=== PATIENT | male | born 1950 | race Caucasian/White ===

== ENCOUNTER 2016-11-01 21:34 | Emergency (ER) | payer MEDICARE, OTHER ==
[~2016-11-01] VITALS: Ht 180.3 cm; Wt 102.6 kg
[2016-11-01 21:41] VITALS: BP 131/80; PULSE 87; RESP 20; TEMP 100.1; O2SAT 95
[2016-11-01] MEDS ORDERED: SIMV20TA PO (21:51)
[2016-11-01] MEDS ORDERED: LISI10TA3 PO (21:51)
--- NOTE | 2016-11-01 22:10 | PD ---
HPI Chief Complaint: Cold / Flu Symptoms Time Seen by Provider: 22:04 Travel History International Travel<30 days: No Contact w/Intl Traveler<30days: No Traveled to known affect area: No History of Present Illness HPI Patient is a 66-year-old male with history of apprehension and chronic bronchitis not on inhalers presenting with chief complaint of cough. Present for 6 days. It is worse over the last 3 days. He has had a subjective fever most days. He has sputum production but states he swallows it but does not spit it out. He has had wheezing and dyspnea as well. Dyspnea is worse with activity and lying flat. He denies chest pain. He states he had some sore throat and nasal congestion earlier in the week which has resolved. He did not receive influenza vaccine, has had pneumococcal vaccines. He denies a history of CAD and CHF. He denies any pain or swelling in his legs. PFSH Past Medical History High Cholesterol: Yes Hypertension: Yes Tetanus Vaccination: < 5 Years Influenza Vaccination: Yes Social History Alcohol Use: Yes (2-3 beers daily ) Tobacco Use: No Substance Use: No Allergies-Medications (Allergen,Severity, Reaction): Coded Allergies: No Known Allergies (Unverified , 11/01/16) Reported Meds & Prescriptions Reported Meds & Active Scripts Active Guaifenesin-Codeine Liq 100-10 Mg/5 Ml Soln 5-10 Ml PO Q6H PRN Medrol Dosepak (Methylprednisolone) 4 Mg Dspk 4 Mg PO DIRECTED Per Pharmacist direction Proair Hfa 8.5 GM Inh (Albuterol Sulfate) 90 Mcg/Act Aer 2 Puff INH Q4-6H PRN 108 mcg/actuation Zithromax Z-Martin (Azithromycin) 250 Mg Dspk 250 Mg PO DIRECTED 500 MG (2 tabs) day 1, then 1 tab days 2-5. Reported Simvastatin 20 Mg Tab 20 Mg PO DAILY Lisinopril 10 Mg Tab 10 Mg PO DAILY Review of Systems Except as stated in HPI: all other systems reviewed are Neg Physical Exam Narrative GENERAL: Well-developed and well-nourished adult male in no acute distress. SKIN: Warm and dry. Good turgor without tenting. HEAD: Normocephalic and atraumatic. EYES: PERRL bilaterally, 5mm. EOMI bilaterally. No injection or icterus present. No proptosis. Lids without edema or erythema. ENT: Bilateral ear canals are non-edematous/non-erythematous without otorrhea. Bilateral TMs have intact landmarks and without distortion, perforation, air- fluid level or erythema. Nasal mucosa pink and moist without discharge, septum intact and midline. Buccal mucosa pink and moist. Oropharynx free of erythema, tonsillar hypertrophy, masses, swelling, asymmetry and exudates. Uvula midline and airway patent. NECK: Supple, no meningeal signs. Trachea midline, no JVD. No cervical or facial lymphadenopathy. CARDIOVASCULAR: Regular rate and rhythm without murmurs, rubs, clicks or gallops. Radial and posterior tibial pulses 2+ bilaterally. No pedal edema. Negative bilateral Homans sign. RESPIRATORY: Diffuse end-inspiratory and expiratory wheezing without rales or rhonchi. No distress or use of accessory muscles. No stridor, tripoding or drooling. GASTROINTESTINAL: Non-tender, non-distended. Normal bowel sounds all 4 quadrants. No masses or organomegaly present. MUSCULOSKELETAL: No gait disturbances. Patient freely moving all four extremities spontaneously. Extremities without clubbing, cyanosis, or edema. No obvious deformities. NEUROLOGIC: CN II-XII grossly intact. Awake and alert. Motor grossly within normal limits. Normal speech. PSYCHIATRIC: Appropriate mood and affect; insight and judgment normal. Data Data Last Documented VS Vital Signs Date Time Temp Pulse Resp B/P Pulse Ox O2 Delivery O2 Flow Rate FiO2 11/02/16 00:37 98.4 87 24 126/64 95 Room Air Orders Complete Blood Count With Diff (11/01/16 22:) Comprehensive Metabolic Panel (11/01/16 22:01) B-Type Natriuretic Peptide (11/01/16 22:01) Troponin I (11/01/16 22:01) Influenzae A/B Antigen (11/01/16 22:01) Iv Access Insert/Monitor (11/01/16 22:) Electrocardiogram (11/01/16 22:) Ecg Monitoring (11/01/16 22:) Oximetry (11/01/16 22:01) Chest, Pa & Lat (11/01/16 22:01) Methylprednisolone So Succ Inj (Solumedr (11/01/16 22:15) Albuterol-Ipratropium Neb (Duoneb Neb) (11/01/16 22:15) Potassium Chloride (Kcl) (11/01/16 23:00) Albuterol-Ipratropium Neb (Duoneb Neb) (11/01/16 23:00) Ceftriaxone Inj (Rocephin Inj) (11/01/16 23:15) Blood Culture (11/01/16 23:11) Labs Laboratory Tests Test 11/01/16 22:20 White Blood Count 5.1 TH/MM3 Red Blood Count 4.19 MIL/MM3 Hemoglobin 13.4 GM/DL Hematocrit 38.3 % Mean Corpuscular Volume 91.3 FL Mean Corpuscular Hemoglobin 32.1 PG Mean Corpuscular Hemoglobin 35.2 % Concent Red Cell Distribution Width 12.1 % Platelet Count 134 TH/MM3 Mean Platelet Volume 8.4 FL Neutrophils (%) (Auto) 61.9 % Lymphocytes (%) (Auto) 27.6 % Monocytes (%) (Auto) 7.6 % Eosinophils (%) (Auto) 2.1 % Basophils (%) (Auto) 0.8 % Neutrophils # (Auto) 3.2 TH/MM3 Lymphocytes # (Auto) 1.4 TH/MM3 Monocytes # (Auto) 0.4 TH/MM3 Eosinophils # (Auto) 0.1 TH/MM3 Basophils # (Auto) 0.0 TH/MM3 CBC Comment DIFF FINAL Differential Comment Sodium Level 140 MEQ/L Potassium Level 3.2 MEQ/L Chloride Level 103 MEQ/L Carbon Dioxide Level 27.3 MEQ/L Anion Gap 10 MEQ/L Blood Urea Nitrogen 19 MG/DL Creatinine 0.93 MG/DL Estimat Glomerular Filtration 81 ML/MIN Rate Random Glucose 148 MG/DL Calcium Level 7.8 MG/DL Total Bilirubin 0.5 MG/DL Aspartate Amino Transf 31 U/L (AST/SGOT) Alanine Aminotransferase 37 U/L (ALT/SGPT) Alkaline Phosphatase 41 U/L Troponin I LESS THAN 0.02 NG/ML B-Type Natriuretic Peptide 13 PG/ML Total Protein 6.9 GM/DL Albumin 3.5 GM/DL MDM Medical Decision Making Medical Screen Exam Complete: Yes Emergency Medical Condition: Yes Differential Diagnosis Pneumonia versus bronchitis versus viral syndrome versus CHF versus ACS Narrative Course Patient is a 66-year-old male with history of chronic bronchitis, hypertension and hyperlipidemia presenting with worsening cough and dyspnea and subjective fever. He's had symptoms for 6 days in the ear nose and throat symptoms have resolved however his respiratory symptoms are worsening. He denies any chest pain but has dyspnea with exertion and lying flat. He has diffuse wheezing. He states he has chronic bronchitis and stop smoking 20 years prior, is not on any inhalers. Patient was given site Medrol and DuoNeb and ordered EKG, chest x -ray, influenza, metabolic, CBC, BMP and troponin. Potassium 3.2, replaced with 30 mEq orally. Patient not receive complete resolution of his symptoms with 2 nebs initially, was given 2 additional. EKG shows arrhythmias or signs of ischemia. Chest x-ray pending. Patient was signed out to Dr. Holder for final care and disposition. Diagnosis Primary Impression: Bronchitis Scripts Guaifenesin-Codeine Liq 100-10 Mg/5 Ml Soln5-10 Ml PO Q6H PRN (COUGH) #1 BOTTLE Ref 0 Prov:Candida Holder MD 11/02/16 Methylprednisolone Dosepak (Medrol Dosepak)4 Mg Dspk4 Mg PO DIRECTED #1 DSPK Ref 0 Per Pharmacist direction Prov:Candida Holder MD 11/02/16 Albuterol 8.5 GM Inh (Proair Hfa 8.5 GM Inh)90 Mcg/Act Aer2 Puff INH Q4-6H PRN ( SHORTNESS OF BREATH) #1 INHALER Ref 0 108 mcg/actuation Prov:Candida Holder MD 11/02/16 Azithromycin (Zithromax Z-Martin)250 Mg [id number] Mg PO DIRECTED #1 DSPK Ref 0 500 MG (2 tabs) day 1, then 1 tab days 2-5. Prov:Candida Holder MD 11/02/16 Condition: Stable Marcus Craig III Nov 01, 2016 22:10
[2016-11-01] MEDS: RESP: ALBUTEROL 2.5 MG/IPRATROPIUM 0.5 MG NEB (SCH) INH ×4 (22:12→23:23)
[2016-11-01] MEDS ORDERED: methylPREDNISolone SOD SUCC 125 MG/2 ML VIAL IVP ONE (22:15)
[2016-11-01 22:20] VITALS: O2SAT 95
[2016-11-01 22:33] LABS: AUTOMATED NEUTROPHIL # 3.2 TH/MM3 (1.8-7.7); BASOPHIL % 0.8 % (0.0-2.0); EOSINOPHIL # 0.1 TH/MM3 (0-0.4); EOSINOPHIL % 2.1 % (0.0-4.0); HEMATOCRIT 38.3 % (39.0-51.0); HEMO FLAGS DIFF FINAL; LYMPH % 27.6 % (9.0-44.0); LYMPHOCYTE # 1.4 TH/MM3 (1.0-4.8); MEAN CELL VOLUME 91.3 FL (80.0-100.0); MEAN CORPUSCULAR HEMOGLOBIN 32.1 PG (27.0-34.0); MEAN CORPUSCULAR HGB CONC 35.2 % (32.0-36.0); MONO % 7.6 % (0.0-8.0); NEUT % 61.9 % (16.0-70.0); PLATELET COUNT 134 TH/MM3 (150-450); RED BLOOD COUNT 4.19 MIL/MM3 (4.50-5.90); RED CELL DISTRIBUTION WIDTH 12.1 % (11.6-17.2); WHITE BLOOD COUNT 5.1 TH/MM3 (4.0-11.0)
[2016-11-01 22:42] LABS: CHLORIDE 103 MEQ/L (98-107); POTASSIUM 3.2 MEQ/L (3.5-5.1); SODIUM (NA) 140 MEQ/L (136-145)
[2016-11-01 22:46] LABS: ANION GAP 10 MEQ/L (5-15); BICARBONATE 27.3 MEQ/L (21.0-32.0); BLOOD UREA NITROGEN 19 MG/DL (7-18)
[2016-11-01 22:49] LABS: ALT (GPT) 37 U/L (12-78); AST (GOT) 31 U/L (15-37); GLOMERULAR FILTRATION RATE 81 ML/MIN (>89)
[2016-11-01 22:50] LABS: TOTAL BILIRUBIN ADULT 0.5 MG/DL (0.2-1.0)
[2016-11-01 22:52] LABS: ALKALINE PHOSPHATASE 41 U/L (45-117)
[2016-11-01] MEDS ORDERED: POTASSIUM CHLORIDE 10 MEQ CONTROLLED RELEASE TAB PO ONE (23:00)
[2016-11-01] MEDS ORDERED: cefTRIAXone INJ 1,000 MG in SODIUM CHLORIDE 0.9% INJ 100 ML IV ONE (23:15)
--- NOTE | 2016-11-01 23:20 | RADHPO ---
EXAM DATE/TIME: 11/01/2016 22:12 [facility] COMPARISON: No previous studies available for comparison. INDICATIONS : Cough. MEDICAL HISTORY : None. SURGICAL HISTORY : None. ENCOUNTER: Initial ACUITY: 1 day PAIN SCORE: 0/10 LOCATION: Bilateral chest FINDINGS: Trace atelectasis seen in the bases. No focal lobar consolidation seen. No pleural effusion or pneumo thorax. Heart size within normal limits. Thoracic aorta is tortuous. CONCLUSION: Mild bibasilar atelectasis. Marcus Crowe MD on November 01, 2016 at 23:18 Board Certified Radiologist. This report was verified electronically.
--- NOTE | 2016-11-01 23:31 | PD ---
Physical Exam Date Seen by Provider: Nov 01, 2016 Time Seen by Provider: 23:29 Narrative accepted in transfer of care from [facility] GENERAL: SKIN: Warm and dry. HEAD: Normocephalic. EYES: No scleral icterus. No injection or drainage. NECK: Supple, trachea midline. No JVD or lymphadenopathy. CARDIOVASCULAR: Regular rate and rhythm without murmurs, gallops, or rubs. RESPIRATORY: Breath sounds equal bilaterally. No accessory muscle use. GASTROINTESTINAL: Abdomen soft, non-tender, nondistended. MUSCULOSKELETAL: No cyanosis, or edema. BACK: Nontender without obvious deformity. No CVA tenderness. Data Data Last Documented VS Vital Signs Date Time Temp Pulse Resp B/P Pulse Ox O2 Delivery O2 Flow Rate FiO2 11/02/16 00:37 98.4 87 24 126/64 95 Room Air Orders Complete Blood Count With Diff (11/01/16 22:01) Comprehensive Metabolic Panel (11/01/16 22:01) B-Type Natriuretic Peptide (11/01/16 22:01) Troponin I (11/01/16 22:01) Influenzae A/B Antigen (11/01/16 22:01) Iv Access Insert/Monitor (11/01/16 22:01) Electrocardiogram (11/01/16 22:01) Ecg Monitoring (11/01/16 22:01) Oximetry (11/01/16 22:01) Chest, Pa & Lat (11/01/16 22:01) Methylprednisolone So Succ Inj (Solumedr (11/01/16 22:15) Albuterol-Ipratropium Neb (Duoneb Neb) (11/01/16 22:15) Potassium Chloride (Kcl) (11/01/16 23:00) Albuterol-Ipratropium Neb (Duoneb Neb) (11/01/16 23:00) Ceftriaxone Inj (Rocephin Inj) (11/01/16 23:15) Blood Culture (11/01/16 23:11) Labs Laboratory Tests Test 11/01/16 22:20 White Blood Count 5.1 TH/MM3 Red Blood Count 4.19 MIL/MM3 Hemoglobin 13.4 GM/DL Hematocrit 38.3 % Mean Corpuscular Volume 91.3 FL Mean Corpuscular Hemoglobin 32.1 PG Mean Corpuscular Hemoglobin 35.2 % Concent Red Cell Distribution Width 12.1 % Platelet Count 134 TH/MM3 Mean Platelet Volume 8.4 FL Neutrophils (%) (Auto) 61.9 % Lymphocytes (%) (Auto) 27.6 % Monocytes (%) (Auto) 7.6 % Eosinophils (%) (Auto) 2.1 % Basophils (%) (Auto) 0.8 % Neutrophils # (Auto) 3.2 TH/MM3 Lymphocytes # (Auto) 1.4 TH/MM3 Monocytes # (Auto) 0.4 TH/MM3 Eosinophils # (Auto) 0.1 TH/MM3 Basophils # (Auto) 0.0 TH/MM3 CBC Comment DIFF FINAL Differential Comment Sodium Level 140 MEQ/L Potassium Level 3.2 MEQ/L Chloride Level 103 MEQ/L Carbon Dioxide Level 27.3 MEQ/L Anion Gap 10 MEQ/L Blood Urea Nitrogen 19 MG/DL Creatinine 0.93 MG/DL Estimat Glomerular Filtration 81 ML/MIN Rate Random Glucose 148 MG/DL Calcium Level 7.8 MG/DL Total Bilirubin 0.5 MG/DL Aspartate Amino Transf 31 U/L (AST/SGOT) Alanine Aminotransferase 37 U/L (ALT/SGPT) Alkaline Phosphatase 41 U/L Troponin I LESS THAN 0.02 NG/ML B-Type Natriuretic Peptide 13 PG/ML Total Protein 6.9 GM/DL Albumin 3.5 GM/DL [facility] Medical Record Reviewed: Yes Supervised Visit with HÉCTOR: Yes Interpretation(s) Vital Signs Date Time Temp Pulse Resp B/P Pulse Ox O2 Delivery O2 Flow Rate FiO2 11/02/16 00:37 98.4 87 24 126/64 95 Room Air 11/02/16 00:02 84 18 95 Room Air 11/01/16 22:20 95 Room Air 11/01/16 21:50 20 95 Room Air 11/01/16 21:41 100.1 87 20 131/80 95 CBC & BMP Diagram 11/01/16 22:20 Last Impressions Chest X-Ray 11/01/161 Signed Impressions: Service Date/Time: Tuesday, November 01, 2016 22:12 - CONCLUSION: Mild bibasilar atelectasis. Marcus Crowe MD Differential Diagnosis Bronchitis, pneumonia, CHF, ACS, CHF, PE Narrative Course @ 00:38 lung sounds improved; patient requests discharge to home Diagnosis Primary Impression: Bronchitis Referrals: Primary Care Physician call for appointment Patient Instructions: General Instructions Additional Instruction: Increase fluid hydration Complete course of antibiotic as prescribed Use cough syrup as prescribed as needed for cough suppression avoid use during the day Follow-up with primary care physician Use as tolerated ibuprofen/Advil/Motrin every 6-8 hours as needed for fever for 100.4F or greater or for pain associated with inflammation Use acetaminophen/Tylenol every 4 hours as needed for fever 100.4F or greater or minor discomfort Return to the emergency department for any concerns or change in condition Med/Other Pt SpecificInfo: Prescription(s) given Scripts Guaifenesin-Codeine Liq 100-10 Mg/5 Ml Soln5-10 Ml PO Q6H PRN (COUGH) #1 BOTTLE Ref 0 Prov:Candida Holder MD 11/02/16 Methylprednisolone Dosepak (Medrol Dosepak)4 Mg Dspk4 Mg PO DIRECTED #1 DSPK Ref 0 Per Pharmacist direction Prov:Candida Holder MD 11/02/16 Albuterol 8.5 GM Inh (Proair Hfa 8.5 GM Inh)90 Mcg/Act Aer2 Puff INH Q4-6H PRN ( SHORTNESS OF BREATH) #1 INHALER Ref 0 108 mcg/actuation Prov:Candida Holder MD 11/02/16 Azithromycin (Zithromax Z-Martin)250 Mg [id number] Mg PO DIRECTED #1 DSPK Ref 0 500 MG (2 tabs) day 1, then 1 tab days 2-5. Prov:Candida Holder MD 11/02/16 Disposition: 01 DISCHARGE HOME Condition: Stable Candida Holder MD Nov 01, 2016 23:31
[2016-11-02 00:02] VITALS: PULSE 84; RESP 18; O2SAT 94; O2SAT 95
[2016-11-02 00:37] VITALS: BP 126/64; PULSE 87; RESP 24; TEMP 98.4; O2SAT 95
[2016-11-02] MEDS ORDERED: GUAI100S5 PO (00:41)
[2016-11-02] MEDS ORDERED: MEDR4PAK PO (00:41)
[2016-11-02] MEDS ORDERED: ZITHTAB PO (00:41)
[2016-11-02] MEDS ORDERED: ALBUAER3 INH (00:41)
--- NOTE | 2016-11-03 09:38 | EKG ---
Date Performed: 11/01/2016 Time Performed: 22:23:30 PTAGE: 66 years EKG: Sinus rhythm ST junctional depression is nonspecific Borderline ECG NO PREVIOUS TRACING DOCTOR: Alvaro Staley Interpretating Date/Time 11/03/2016 09:36:32
== END 2016-11-02 00:52 | disposition home or self-care (01) ==
LOC: PHEFT 21:34 → PHED 11-02 00:52
DX: J40 Bronchitis, not specified as acute or chronic (principal); J98.11 Atelectasis; R94.31 Abnormal electrocardiogram [ECG] [EKG]; R50.9 Fever, unspecified; I10 Essential (primary) hypertension; E78.5 Hyperlipidemia, unspecified; Z87.09 Personal history of other diseases of the respiratory system; Z87.891 Personal history of nicotine dependence
CPT/HCPCS: 71020; 80053; 83880; 84484; 85025; 87040; 87804; 93005; 94640; 94664; 96365; 96375; 99284; J0696; J2930